=== PATIENT | male | born 2000 | race Caucasian/White ===

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

== ENCOUNTER 2023-05-11 18:48 | Emergency (ER) | payer MEDICAID ==
[~2023-05-11] VITALS: Ht 172.7 cm; Wt 70.3 kg
[~2023-05-11 18:48] MED LIST changes: +CEPH-548 PO
[2023-05-11 19:00] VITALS: BP_SYST 120; PULSE 70; RESP 16; TEMP 97.8; O2SAT 98
[2023-05-11] MEDS ORDERED: HYDC2.5% TP (20:23)
[2023-05-11 20:28] VITALS: BP_SYST 120; PULSE 72; RESP 18; TEMP 98.5; O2SAT 98
== END 2023-05-11 20:28 | disposition home or self-care (01) ==
LOC: SED 18:48
DX: T63.481A Toxic effect of venom of other arthropod, accidental (unintentional), initial encounter (principal); Z79.899 Other long term (current) drug therapy; Y92.89 Other specified places as the place of occurrence of the external cause
CPT/HCPCS: 99282